=== PATIENT | female | born 1995 | race Caucasian/White ===

== ENCOUNTER 2017-07-18 02:57 | Emergency (ER) | payer SELFPAY ==
[2017-07-18 04:40] LABS: Bilirubin Small (Negative); Blood, Urine Negative (Negative); Clarity Clear (Clear); Glucose, Urine (Dipstick) Negative (Negative); Leukocyte Negative (Negative); Nitrite Negative (Negative); Protein, Urine (Dipstick) Trace mg/dL (Neg-Trace); Urobilinogen 0.2 mg/dL (0.2-1.0)
[2017-07-18 04:41] LABS: Specific Gravity, Urine 1.034 (1.002-1.036)
[2017-07-18 05:07] LABS: Pregnancy Test - Urine (BHCG) Negative (Negative); Pregu Control Background? CLEAR/WHITE (CLR/WHITE); Pregu Control Bar Appear? YES (CONTROL BAR); Specific Gravity 1.034 (1.002-1.036)
== END 2017-07-18 04:55 | disposition home or self-care (01) ==
LOC: ERS 02:57
DX: J11.1 Influenza due to unidentified influenza virus with other respiratory manifestations (principal); F17.210 Nicotine dependence, cigarettes, uncomplicated
CPT/HCPCS: 81003; 81025; 87804; 99283

== ENCOUNTER 2017-12-23 10:10 | Emergency (ER) | payer SELFPAY ==
[2017-12-23 10:52] LABS: Bilirubin Negative (Negative); Blood, Urine Negative (Negative); Clarity CLEAR (Clear); Glucose, Urine (Dipstick) Negative (Negative); Leukocyte Trace (Negative); Nitrite Negative (Negative); Protein, Urine (Dipstick) Negative (Neg-Trace); Urobilinogen 0.2 mg/dL (0.2-1.0); pH, Urine 7.5 (5.0-9.0)
[2017-12-23 10:54] LABS: Bacteria/HPF None Seen HPF (None Seen); Hyaline Casts/LPF 0-3 HYALINE CAST LPF (0-3 Hyaline); Pathc Cast-AUWi Flag 0.14 (0-2.49); RBC/HPF 0-3 HPF (0-3); Squamous Epithelial 0-3 HPF (0-3); WBC/HPF 0-3 HPF (0-3)
[2017-12-23 11:00] LABS: Specific Gravity, Urine 1.004 (1.002-1.036)
[2017-12-23 11:01] LABS: Pregnancy Test - Urine (BHCG) Negative (Negative); Pregu Control Background? CLEAR/WHITE (CLR/WHITE); Pregu Control Bar Appear? YES (CONTROL BAR); Specific Gravity 1.004 (1.002-1.036)
[2017-12-23] MEDS ORDERED: Ondansetron ODT 8 MG TAB ONE (11:42)
[2017-12-23] MEDS ORDERED: Ketorolac Tromethamine 30 MG/ML VIAL ONE (11:43)
[2017-12-23] MEDS ORDERED: Metoclopramide HCl 10 MG/2 ML VIAL ONE (11:43)
[2017-12-23] MEDS ORDERED: Dexamethasone 4 mg/ml Vial ONE ×2 (11:43)
== END 2017-12-23 12:35 | disposition home or self-care (01) ==
LOC: ERS 10:10
DX: R51 Headache (principal); F17.210 Nicotine dependence, cigarettes, uncomplicated
CPT/HCPCS: 81003; 81015; 81025; 96374; 96375; J1100; J1885; J2765

== ENCOUNTER 2019-08-18 10:47 | Emergency (ER) | payer OTHER, SELFPAY ==
[2019-08-18 11:37] LABS: Bacteria/HPF None Seen HPF (None Seen); Bilirubin Negative (Negative); Blood, Urine 2+ (Negative); Clarity Clear (Clear); Glucose, Urine (Dipstick) Normal (Negative); Leukocyte Negative Leu/uL (Negative); Nitrite Negative (Negative); Protein, Urine (Dipstick) Negative (Neg-Trace); RBC/HPF 21-50 HPF (0-3); Squamous Epithelial 0-3 HPF (0-3); Urobilinogen Normal mg/dL (Less than 2); WBC/HPF 0-3 HPF (0-3)
[2019-08-18 11:44] LABS: Pregnancy Test - Urine (BHCG) Negative (Negative); Pregu Control Bar Appear? YES (CONTROL BAR); Specific Gravity 1.019 (1.002-1.036)
[2019-08-18 12:21] LABS: Pregu Control Background? CLEAR/WHITE (CLR/WHITE)
== END 2019-08-18 12:57 | disposition home or self-care (01) ==
LOC: ERS 10:47
DX: J11.1 Influenza due to unidentified influenza virus with other respiratory manifestations (principal); R31.9 Hematuria, unspecified; F17.210 Nicotine dependence, cigarettes, uncomplicated
CPT/HCPCS: 81003; 81015; 81025; 87804; 99283

== ENCOUNTER 2021-08-10 11:39 | Emergency (ER) | payer MEDICAID ==
[2021-08-10] MEDS ORDERED: Ketorolac Tromethamine 30 MG/ML VIAL ONE (13:25)
[2021-08-10 18:38] LABS: SARS-CoV-2 PCR by NAA DETECTED (NotDetected)
== END 2021-08-10 13:50 | disposition home or self-care (01) ==
LOC: ERS 11:39
DX: U07.1 COVID-19 (principal); M54.50 Low back pain, unspecified; F17.210 Nicotine dependence, cigarettes, uncomplicated
CPT/HCPCS: 96372; 99283; J1885; U0003; U0005

== ENCOUNTER 2021-08-31 11:19 | Outpatient (CLI) | payer MEDICAID, OTHER | END 2021-08-31 11:20 | disposition home or self-care (01) | LOC: RAD 11:19 | PROVIDERS: ATTEND Family Medicine | DX: M54.50 Low back pain, unspecified (principal) | CPT/HCPCS: 36415; 72100; 80053; 80061; 85025; 86038; 86225 ==

== ENCOUNTER 2022-02-12 14:38 | Outpatient (CLI) | payer OTHER | END 2022-02-12 14:39 | disposition home or self-care (01) | LOC: BICULT 14:38 | PROVIDERS: ATTEND Family Medicine | DX: R10.2 Pelvic and perineal pain (principal); R93.89 Abnormal findings on diagnostic imaging of other specified body structures | CPT/HCPCS: 76856; 93976 ==